=== PATIENT | male | born 1975 | race Caucasian/White ===

== ENCOUNTER 2020-09-24 16:19 | Outpatient (CLI) | payer OTHER, SELFPAY | END 2020-09-24 16:20 | disposition home or self-care (01) | LOC: ANHCOVIDVC 16:22 | DX: Z23 Encounter for immunization (principal) | CPT/HCPCS: 0001A; 91300 ==

== ENCOUNTER 2020-10-15 16:23 | Outpatient (CLI) | payer OTHER, SELFPAY | END 2020-10-15 16:24 | disposition home or self-care (01) | LOC: ANHCOVIDVC 16:23 | DX: Z23 Encounter for immunization (principal) | CPT/HCPCS: 0002A; 91300 ==